=== PATIENT | male | born 1995 | race Hispanic/Latino ===

== ENCOUNTER 2021-01-29 06:06 | Emergency (ER) | payer SELFPAY ==
[2021-01-29] MEDS ORDERED: Ketorolac Tromethamine 30 MG/ML VIAL ONE (06:27)
[2021-01-29] MEDS ORDERED: Aspirin Chewable 81 MG TAB ONE (06:27)
[2021-01-29] MEDS ORDERED: Lidocaine Viscous Sol 2% 15 ml UD Cup ONE (06:35)
[2021-01-29] MEDS ORDERED: Mag-Al Plus 1200 MG/1200 MG/120 MG/30 ML UDCUP ONE (06:35)
[2021-01-29 06:37] LABS: #Monocytes 0.7 10x3/uL (0.0-1.1); #Neutrophils 7.9 10x3/uL (1.5-8.4); %Basophils 0.2 % (0.0-2.0); %Eosinophils 0.2 % (0.0-6.0); %Lymphocytes 10.8 % (18.0-47.0); %Monocytes 6.7 % (0.0-10.0); %Neutrophils 81.6 % (40.0-75.0); Hemoglobin 15.6 g/dL (13.5-17.5); Mean Corpuscular Hemoglobin 30.5 pg (27.0-33.0); Mean Corpuscular Volume 89.6 fl (81.2-95.1); Mean Platelet Volume 9.6 fl (7.4-10.4); Platelet Count 230 10x3/uL (150-450); Red Blood Cell (RBC) Count 5.12 10x6/uL (4.32-5.72); White Blood Cell (WBC) Count 9.7 10x3/uL (3.5-10.5)
[2021-01-29 06:52] LABS: ALT (SGPT) 32 U/L (8-55); AST (SGOT) 16 U/L (5-34); Albumin 4.3 g/dL (3.5-5.0); Alkaline Phosphatase 71 U/L (40-110); Anion Gap 14 mmol/L (10-20); BUN (Urea Nitrogen) 10 mg/dL (8.9-20.6); Bilirubin, Total 1.3 mg/dL (0.2-1.2); CK (CPK) 74 U/L (30-200); Calc. Creatinine Clearance 0 mL/min (70-130); Calcium 8.7 mg/dL (7.8-10.44); Carbon Dioxide 24 mmol/L (22-29); Chloride 103 mmol/L (98-107); Globulin 2.8 g/dL (2.4-3.5); Glucose 134 mg/dL (70-105); Lipase 12 U/L (8-78); Potassium 3.7 mmol/L (3.5-5.1); Protein, Total 7.1 g/dL (6.0-8.3); Sodium 137 mmol/L (136-145)
[2021-01-29 08:30] LABS: Troponin I Less than 0.010 ng/mL (< 0.028)
== END 2021-01-29 09:20 | disposition home or self-care (01) ==
LOC: CSHERS 06:06
DX: R07.9 Chest pain, unspecified (principal)
CPT/HCPCS: 36415; 71045; 80053; 82550; 83690; 84484; 85025; 85379; 93005; 96374; J1885

== ENCOUNTER 2021-04-04 13:16 | Emergency (ER) | payer SELFPAY ==
[2021-04-04] MEDS ORDERED: Dexamethasone 10 MG/ML VIAL ONE (13:46)
[2021-04-04] MEDS ORDERED: Ketorolac Tromethamine 30 MG/ML VIAL ONE (13:46)
[2021-04-04] MEDS ORDERED: Bicillin LA 1.2 MILLION UNITS/2 ML SYRINGE ONE (13:46)
[2021-04-05 13:22] LABS: SARS-CoV-2 PCR by NAA DETECTED (NotDetected)
== END 2021-04-04 14:05 | disposition home or self-care (01) ==
LOC: CSHERS 13:16
DX: U07.1 COVID-19 (principal); J02.0 Streptococcal pharyngitis; F17.290 Nicotine dependence, other tobacco product, uncomplicated
CPT/HCPCS: 96372; 99283; J0561; J1100; J1885; U0003; U0005

== ENCOUNTER 2021-12-22 16:09 | Emergency (ER) | payer SELFPAY | END 2021-12-22 18:39 | disposition home or self-care (01) | LOC: CSHERS 16:09 | DX: B34.9 Viral infection, unspecified (principal); Z20.822 Contact with and (suspected) exposure to COVID-19; F17.290 Nicotine dependence, other tobacco product, uncomplicated | CPT/HCPCS: 71045; 87081; 87430; 87804; U0003; U0005 ==

== ENCOUNTER 2024-04-16 20:33 | Emergency (ER) | payer SELFPAY | END 2024-04-16 21:12 | disposition home or self-care (01) | LOC: CSHERS 20:33 | DX: H11.33 Conjunctival hemorrhage, bilateral (principal); F17.290 Nicotine dependence, other tobacco product, uncomplicated ==